=== PATIENT | female | born 1940 | race Native Hawaiian/Other Pacific Islander ===

== ENCOUNTER 2018-08-08 10:15 | Outpatient (CLI) | payer MEDICARE | END 2018-08-08 10:16 | disposition home or self-care (01) | LOC: C.MAMMO 10:15 | DX: Z12.31 Encounter for screening mammogram for malignant neoplasm of breast (principal) ==

== ENCOUNTER 2018-12-01 15:13 | Observation (INO) | payer MEDICARE ==
--- NOTE | 2018-12-01 15:30 | C.PDOC ---
History Of Present Illness 78 yr old female w/ hx of HTN p/w tachycardia. Pt notes visiting her new PMD today: Dr. Douglas who referred her to the ED for tachycardia. She notes only going in to see Dr. Douglas for establishment of a new PMD. She denies any shortness of breath or chest pain. No leg swelling. No fever, chills or night sweats. No fall or trauma / MVA. No headache, abdominal pain, back pain. No extremity pain. No rash. No constipation or diarrhea. No dark or bloody stool. No other complaints. Donavan Mckenna Time Seen by Provider: 12/01/18 15:29 Chief Complaint (Nursing): Medical Clearance Past Medical History Vital Signs: Last Vital Signs Temp 97.8 F 12/01/18 15:20 Pulse 128 H 12/01/18 15:20 Resp 18 12/01/18 15:20 BP 164/84 H 12/01/18 15:20 Pulse Ox 100 12/01/18 15:20 Primary Care Provider: Donavan Douglas C - Medical History PMH: HTN Family History: States: Unknown Family Hx - Social History Hx Alcohol Use: No Hx Substance Use: No Review Of Systems Constitutional: Negative for: Fever, Chills, Weakness, Malaise Eyes: Negative for: Pain ENT: Negative for: Ear Pain, Ear Discharge, Nose Congestion, Mouth Pain Cardiovascular: Negative for: Chest Pain, Paroxysmal Noc. Dyspnea, Edema Respiratory: Negative for: Cough, Shortness of Breath Gastrointestinal: Negative for: Nausea, Vomiting, Abdominal Pain, Constipation, Melena Genitourinary: Negative for: Dysuria, Frequency, Hematuria Musculoskeletal: Negative for: Neck Pain, Shoulder Pain, Back Pain, Hand Pain Skin: Negative for: Rash, Lesions Neurological: Negative for: Weakness, Numbness Psych: Negative for: Anxiety, Psychosis Physical Exam - Physical Exam Appears: Well, Non-toxic, No Acute Distress Skin: Normal Color, Warm, Dry Head: Atraumatic, Normacephalic Eye(s): bilateral: Normal Inspection, PERRL, EOMI Ear(s): Bilateral: Normal Nose: Normal Oral Mucosa: Moist Tongue: Normal Appearing Lips: Normal Appearing Teeth: Normal Dentition Throat: Normal, No Erythema, No Exudate Neck: Normal, No Midline Cervical Tenderness, No Paracervical Tenderness, Supple, Other (no meningeal signs) Lymphatic: Normal Exam, No Adenopathy Cardiovascular: No Friction Rub, No Murmur, No JVD, Other (tachycardic) Respiratory: Normal Breath Sounds, No Decreased Breath Sounds, No Accessory Muscle Use, No Rales, No Rhonchi Gastrointestinal/Abdominal: Normal Exam, Soft, No Tenderness, No Mass, No Distention, No Guarding Back: Normal Inspection, No CVA Tenderness, No Vertebral Tenderness Extremity: Normal ROM Extremity: Bilateral: Atraumatic Neurological/Psych: Oriented x3, Normal Speech, Normal Cognition, Normal Cranial Nerves, No Cerebellar Signs, Normal Motor Gait: Steady Extremity: Right: No Drift, Left: No Drift ED Course And Treatment - Laboratory Results Result Diagrams: 12/01/18 16:41 12/01/18 16:41 O2 Sat by Pulse Oximetry: 100 Medical Decision Making Medical Decision Makin yr old female w/ hx of HTN p/w tachycardia. She denies any complaints at this time. Well appearing w/ normal neuro exam. Sent in by Dr. Douglas for evaluation. Pending imaging / labs EK, sinus tachy, no stemi 1812 UA, CXR unremarkable mildly elevated WBC remains tachy at 112, pt however only notes mild nausea w/ out abdominal pain no other complaints. abd remains non-ttp and pt without meningeal signs appreciate consult w/ Dr. Bethea: Cards: ?infectious etiology appreciate consult w/ Dr. Douglas: to obs to his service pt in NAD, agreeable to plan Disposition - Disposition Disposition: HOSPITALIZED Disposition Time: 18:14 Condition: STABLE - Clinical Impression Clinical Impression: Tachycardia, Leukocytosis
[2018-12-01] MEDS ORDERED: Sodium Chloride 0.9% 1,000 ML IV ONE (16:04)
[2018-12-01 16:50] LABS: BASO # 0.1 K/uL (0.0-0.2); BASO % 0.4 % (0.0-2.0); EOS # 0.1 K/uL (0.0-0.7); EOS % 0.6 % (0.0-4.0); LYMPH # 1.2 K/uL (1.0-4.3); LYMPH % 9.1 % (20.0-40.0); MEAN CELL VOLUME 89.7 fL (81.0-99.0); MEAN CORPUSCULAR HEMOGLOBIN 30.5 pg (27.0-31.0); MEAN PLATELET VOLUME 6.8 fL (7.2-11.7); MONO # 0.6 K/uL (0.0-0.8); MONO % 4.4 % (0.0-10.0); NEUT # 11.2 K/uL (1.8-7.0); NEUT % 85.5 % (50.0-75.0); PLATELET COUNT 298 K/uL (130-400); RBC 4.57 Mil/uL (3.80-5.20); RED CELL DISTRIBUTION WIDTH 13.2 % (11.5-14.5); WHITE BLOOD COUNT 13.1 K/uL (4.8-10.8)
[2018-12-01 16:59] LABS: BLOOD UREA NITROGEN 11 mg/dL (7-17); CALCIUM 9.7 mg/dl (8.6-10.4); GFR NON-AFRICAN AMERICAN > 60
[2018-12-01 17:06] LABS: ALB/GLOB RATIO 1.1 (1.0-2.1); ALT/SGPT 14 U/L (9-52); AST/SGOT 46 U/L (14-36)
--- NOTE | 2018-12-01 17:26 | RAD ---
Date of service: 12/01/2018 HISTORY: Tachycardia COMPARISON: No prior. TECHNIQUE: Chest PA and lateral FINDINGS: LINES AND TUBES: None. LUNG AND PLEURA: The lungs are well inflated and clear. No pleural effusion or pneumothorax. HEART AND MEDIASTINUM: The heart is not enlarged. No aortic atherosclerotic calcifications present. The hilar and mediastinal contours are within normal limits. SKELETAL STRUCTURES: The bony structures are within normal limits for the patient's age. VISUALIZED UPPER ABDOMEN: Normal. OTHER FINDINGS: None. IMPRESSION: No active pulmonary disease.
[2018-12-01 17:48] LABS: SQUAMOUS EPITHIAL < 1 /hpf (0-5); URINE BACTERIA RARE (<OCC); URINE BILIRUBIN NEGATIVE (NEGATIVE); URINE BLOOD 1+ (NEGATIVE); URINE CLARITY Clear (Clear); URINE COLOR Straw (YELLOW); URINE GLUCOSE (UA) NORMAL (Normal); URINE LEUKOCYTE ESTERASE NEG Leu/uL (Negative); URINE PROTEIN NEGATIVE (NEGATIVE); URINE UROBILINOGEN NORMAL mg/dL (0.2-1.0)
[2018-12-01 19:13] LABS: VENOUS BLOOD GAS BASE EXCESS -2.2 mmol/L (0.0-2.0); VENOUS BLOOD GAS PCO2 41 mmHg (40-60); VENOUS BLOOD GAS PO2 28 mm/Hg (30-55); VENOUS BLOOD PH 7.36 (7.32-7.43)
[2018-12-01] MEDS ORDERED: Pneumococcal 23-Valent Vaccine IM ONE (20:31)
[2018-12-01 20:33] LABS: EOSINOPHIL 1 % (0-4); LYMPHOCYTE 8 % (20-40); MONOCYTE 3 % (0-10); NEUTROPHIL 88 % (50-75); PLATELET ESTIMATE NORMAL (NORMAL); TOTAL CELLS COUNTED 100
[2018-12-01] MEDS: Azithromycin 500 MG in Sodium Chloride 0.9% 250 ML IVPB SCH (21:59)
[2018-12-02 07:19] LABS: HEMOGLOBIN 12.6 g/dL (11.0-16.0); MEAN CELL VOLUME 90.9 fL (81.0-99.0); MEAN CORPUSCULAR HEMOGLOBIN 30.9 pg (27.0-31.0); MEAN PLATELET VOLUME 6.8 fL (7.2-11.7); RBC 4.09 Mil/uL (3.80-5.20)
[2018-12-02 07:42] LABS: ALB/GLOB RATIO 1.4 (1.0-2.1); ALBUMIN 4.4 g/dL (3.5-5.0); ALT/SGPT 12 U/L (9-52); AST/SGOT 29 U/L (14-36); BLOOD UREA NITROGEN 9 mg/dL (7-17); GFR NON-AFRICAN AMERICAN > 60
[2018-12-02 07:53] LABS: B-TYPE NATRIURETIC PEPTIDE 132 pg/mL (0-900)
[2018-12-02 08:39] VITALS: RESP 20
[2018-12-02] MEDS: Azithromycin 500 MG in Sodium Chloride 0.9% 250 ML IVPB SCH (09:39)
[2018-12-02] MEDS ORDERED: Enoxaparin 40 mg Syringe SC SCH (10:00)
[2018-12-02] MEDS ORDERED: Pantoprazole 40 mg EC Tab PO SCH (10:00)
--- NOTE | 2018-12-02 14:36 | CARD ---
APPROVED REPORT Date of service: 12/01/2018 EKG Measurement Heart [id number] <Conclusion> Sinus tachycardia Inferior infarct, age undetermined Abnormal ECG
--- NOTE | 2018-12-02 15:15 | CP.PCM.HP ---
History of Present Illness - History of Present Illness History of Present Illness: cc: sinus tachycardia Pt is a 78 year old [place] female, who presents to the office today for the first time. Pt has a PMHx of hypertension and is taking losartan and amlodipine for her hypertension. While being prepped to be seen pt was noted to have tachycardia. On auscultation and the subsequent EKG revealed sinus tachycardia with ST depressions on V4, V5, and V6. Advised pt that she needs to be stabilized and heart rate slowed down. Pt agreed to go to the ER after discussing the situation. When pt's b/w came back she was found to have an elevated WBC with no other accompanying symptoms. Pt wsa pancultured, and admitted for telemetry obeservation status [id number] osmin fgure what is going on with her body. Present on Admission - Present on Admission Any Indicators Present on Admission: No History of DVT/PE: No History of Uncontrolled Diabetes: No Urinary Catheter: No Decubitus Ulcer Present: No History Surgical Site Infection Following: None Review of Systems - Review of Systems Systems not reviewed;Unavailable: Unstable Vital Signs All systems: reviewed and no additional remarkable complaints except (intermittently elevated heart rate with average of 122 bpm. SBP and DBP both erratic from low 100s to 170sd) Review of Systems: pt essentially asymptomatic with only the incidental finding of sinus t achycardia with ST depression on V4, V5, and V6. Past Patient History - Tetanus Immunizations Tetanus Immunization: Unknown - Past Medical History & Family History Past Medical History?: Yes Past Family History: Reviewed and not pertinent - Past Social History Smoking Status: Never Smoked Chewing Tobacco Use: No Cigar Use: No Occupation: retired Alcohol: None Drugs: Denies Home Situation {Lives}: With Family - CARDIAC Hx Hypertension: Yes - PSYCHIATRIC Hx Substance Use: No - SURGICAL HISTORY Hx Section: Yes Hx Dilation and Curettage: Yes Hx Hysterectomy: Yes - ANESTHESIA Hx Anesthesia: Yes Hx Anesthesia Reactions: No Meds Allergies/Adverse Reactions: Allergies Allergy/AdvReac Type Severity Reaction Status Date / Time No Known Allergies Allergy Unverified 01/18/13 09:20 Physical Exam - Constitutional Appears: Well - Head Exam Head Exam: ATRAUMATIC, NORMAL INSPECTION, NORMOCEPHALIC - Eye Exam Eye Exam: EOMI, Normal appearance, PERRL Pupil Exam: NORMAL ACCOMODATION, PERRL - ENT Exam ENT Exam: Mucous Membranes Moist, Normal Exam - Neck Exam Neck exam: Positive for: Normal Inspection - Respiratory Exam Respiratory Exam: Clear to Auscultation Bilateral, NORMAL BREATHING PATTERN - Cardiovascular Exam Cardiovascular Exam: Tachycardia, REGULAR RHYTHM, +S1, +S2 - GI/Abdominal Exam GI & Abdominal Exam: Normal Bowel Sounds, Soft. absent: Tenderness - Rectal Exam Rectal Exam: Deferred - Extremities Exam Extremities exam: Positive for: normal inspection - Back Exam Back exam: NORMAL INSPECTION - Neurological Exam Neurological exam: Alert, CN II-XII Intact, Normal Gait, Oriented x3, Reflexes Normal - Psychiatric Exam Psychiatric exam: Anxious, Normal Affect, Normal Mood - Skin Skin Exam: Dry, Intact, Normal Color, Warm Results - Vital Signs Recent Vital Signs: Last Vital Signs Temp 97.9 F 12/02/18 07:00 Pulse 103 H 12/02/18 11:20 Resp 20 12/02/18 07:00 BP 123/68 12/02/18 07:00 Pulse Ox 100 12/02/18 11:20 - Labs Result Diagrams: 12/02/18 07:06 12/02/18 07:06 Labs: Laboratory Results - last 24 hr 12/01/18 12/01/18 12/01/18 16:41 16:41 17:25 WBC 13.1 H RBC 4.57 Hgb 14.0 Hct 41.0 MCV 89.7 MCH 30.5 MCHC 34.0 RDW 13.2 Plt Count 298 MPV 6.8 L Neut % (Auto) 85.5 H Lymph % (Auto) 9.1 L [place] % (Auto) 4.4 Eos % (Auto) 0.6 Baso % (Auto) 0.4 Neut # (Auto) 11.2 H Lymph # (Auto) 1.2 [place] # (Auto) 0.6 Eos # (Auto) 0.1 Baso # (Auto) 0.1 Neutrophils % (Manual) 88 H Lymphocytes % (Manual) 8 L Monocytes % (Manual) 3 Eosinophils % (Manual) 1 Platelet Estimate Normal pO2 VBG pH VBG pCO2 VBG HCO3 VBG Total CO2 VBG O2 Sat (Calc) VBG Base Excess VBG Potassium Glucose Lactate Sodium 133 Potassium 4.8 Chloride 96 L Carbon Dioxide 24 Anion Gap 18 BUN 11 Creatinine 0.7 Est GFR ( Amer) > 60 Est GFR (Non-Af Amer) > 60 Random Glucose 108 H Calcium 9.7 Phosphorus Magnesium 1.7 Total Bilirubin 0.7 AST 46 H ALT 14 Alkaline Phosphatase 86 Troponin I < 0.0120 NT-Pro-B Natriuret Pep Total Protein 9.6 H Albumin 5.0 Globulin 4.6 H Albumin/Globulin Ratio 1.1 Free T4 TSH 3rd Generation 2.21 Venous Blood Potassium Urine Color Straw Urine Clarity Clear Urine pH 7.0 Ur Specific [place] 1.003 Urine Protein Negative Urine Glucose (UA) Normal Urine Ketones Negative Urine Blood 1+ H Urine Nitrate Negative Urine Bilirubin Negative Urine Urobilinogen Normal Ur Leukocyte Esterase Neg Urine WBC (Auto) < 1 Urine RBC (Auto) 2 Ur Squamous Epith Cells < 1 Urine Bacteria Rare Urine Osmolality 12/01/18 12/02/18 12/02/18 19:11 07:06 07:06 WBC 8.0 RBC 4.09 Hgb 12.6 Hct 37.1 MCV 90.9 MCH 30.9 MCHC 34.0 RDW 13.0 Plt Count 271 MPV 6.8 L Neut % (Auto) Lymph % (Auto) [place] % (Auto) Eos % (Auto) Baso % (Auto) Neut # (Auto) Lymph # (Auto) [place] # (Auto) Eos # (Auto) Baso # (Auto) Neutrophils % (Manual) Lymphocytes % (Manual) Monocytes % (Manual) Eosinophils % (Manual) Platelet Estimate pO2 28 L VBG pH 7.36 VBG pCO2 41 VBG HCO3 21.9 VBG Total CO2 24.5 VBG O2 Sat (Calc) 46.5 VBG Base Excess -2.2 L VBG Potassium 3.1 L Glucose 107 H Lactate 1.6 Sodium 140.0 137 Potassium 4.0 Chloride 107.0 100 Carbon Dioxide 24 Anion Gap 17 BUN 9 Creatinine 0.8 Est GFR ( Amer) > 60 Est GFR (Non-Af Amer) > 60 Random Glucose 107 H Calcium 9.0 Phosphorus 3.3 Magnesium 1.7 Total Bilirubin 0.6 AST 29 ALT 12 Alkaline Phosphatase 55 Troponin I NT-Pro-B Natriuret Pep 132 Total Protein 7.5 Albumin 4.4 Globulin 3.1 Albumin/Globulin Ratio 1.4 Free T4 TSH 3rd Generation Venous Blood Potassium 3.1 L Urine Color Urine Clarity Urine pH Ur Specific [place] Urine Protein Urine Glucose (UA) Urine Ketones Urine Blood Urine Nitrate Urine Bilirubin Urine Urobilinogen Ur Leukocyte Esterase Urine WBC (Auto) Urine RBC (Auto) Ur Squamous Epith Cells Urine Bacteria Urine Osmolality 12/02/18 12/02/18 07:06 07:07 WBC RBC Hgb Hct MCV MCH MCHC RDW Plt Count MPV Neut % (Auto) Lymph % (Auto) [place] % (Auto) Eos % (Auto) Baso % (Auto) Neut # (Auto) Lymph # (Auto) [place] # (Auto) Eos # (Auto) Baso # (Auto) Neutrophils % (Manual) Lymphocytes % (Manual) Monocytes % (Manual) Eosinophils % (Manual) Platelet Estimate pO2 VBG pH VBG pCO2 VBG HCO3 VBG Total CO2 VBG O2 Sat (Calc) VBG Base Excess VBG Potassium Glucose Lactate Sodium Potassium Chloride Carbon Dioxide Anion Gap BUN Creatinine Est GFR ( Amer) Est GFR (Non-Af Amer) Random Glucose Calcium Phosphorus Magnesium Total Bilirubin AST ALT Alkaline Phosphatase Troponin I NT-Pro-B Natriuret Pep Total Protein Albumin Globulin Albumin/Globulin Ratio Free T4 1.00 TSH 3rd Generation 3.84 Venous Blood Potassium Urine Color Urine Clarity Urine pH Ur Specific [place] Urine Protein Urine Glucose (UA) Urine Ketones Urine Blood Urine Nitrate Urine Bilirubin Urine Urobilinogen Ur Leukocyte Esterase Urine WBC (Auto) Urine RBC (Auto) Ur Squamous Epith Cells Urine Bacteria Urine Osmolality 299 L - EKG Data EKG Interpreted by: Myself Rate: Tachycardia - EKG Data When Compared to Previous EKG: Significant Changes Interpretation: Acute Ischemia Assessment & Plan (1) Tachycardia Assessment and Plan: incidental finding on initial office visit. Discussed with pt implications of this finding, especiall when coupled with ST depression on EKG when pt's HR > 120s. Endorsement to ER MD included recommendation to contact pt's transport operations inspector and former PMD Dr. Bethea who, per ER doctor, was "not impressed with pt's EKG finding and that it may be related to the incidental finding of pt's leukocytosis." Recommended telemetry observation admission. Status: Acute Priority: High (2) Leukocytosis Assessment and Plan: start pt on IV abx and observe if subsequent blood draw approx 12 hours later will result in improvement of parameters, particularly her WBC count and differentiation of neutrophil species. Status: Acute Priority: High (3) Hypertension Assessment and Plan: at baseline, and volatility probably from newly discovered leukocytosis Status: Acute Priority: Medium Decision To Admit - Pt Status Changed To: Hospital Disposition Of: Observation - . Bed Request Type: Telemetry Admitting Physician: Donavan Douglas
[2018-12-02 15:39] VITALS: PULSE 98
[2018-12-02 16:40] VITALS: BP 152/81; TEMP 98.1; O2SAT 97
--- NOTE | 2018-12-02 19:11 | CP.PCM.DIS ---
Provider - Provider Date of Admission: 12/01/18 18:11 Attending physician: Donavan Douglas MD Primary care physician: Donavan Douglas MD Time Spent in preparation of Discharge (in minutes): 30 Diagnosis - Discharge Diagnosis (1) Tachycardia Status: Acute Priority: High (2) Leukocytosis Status: Acute Priority: High (3) Hypertension Status: Acute Priority: Medium Hospital Course - Lab Results Lab Results: Most Recent Lab Values WBC 8.0 K/uL (4.8-10.8) 12/02/18 07:06 RBC 4.09 Mil/uL (3.80-5.20) 12/02/18 07:06 Hgb 12.6 g/dL (11.0-16.0) 12/02/18 07:06 Hct 37.1 % (34.0-47.0) 12/02/18 07:06 MCV 90.9 fL (81.0-99.0) 12/02/18 07:06 MCH 30.9 pg (27.0-31.0) 12/02/18 07:06 MCHC 34.0 g/dL (33.0-37.0) 12/02/18 07:06 RDW 13.0 % (11.5-14.5) 12/02/18 07:06 Plt Count 271 K/uL (130-400) 12/02/18 07:06 MPV 6.8 fL (7.2-11.7) L 12/02/18 07:06 Neut % (Auto) 85.5 % (50.0-75.0) H 12/01/18 16:41 Lymph % (Auto) 9.1 % (20.0-40.0) L 12/01/18 16:41 [place] % (Auto) 4.4 % (0.0-10.0) 12/01/18 16:41 Eos % (Auto) 0.6 % (0.0-4.0) 12/01/18 16:41 Baso % (Auto) 0.4 % (0.0-2.0) 12/01/18 16:41 Neut # (Auto) 11.2 K/uL (1.8-7.0) H 12/01/18 16:41 Lymph # (Auto) 1.2 K/uL (1.0-4.3) 12/01/18 16:41 [place] # (Auto) 0.6 K/uL (0.0-0.8) 12/01/18 16:41 Eos # (Auto) 0.1 K/uL (0.0-0.7) 12/01/18 16:41 Baso # (Auto) 0.1 K/uL (0.0-0.2) 12/01/18 16:41 Neutrophils % (Manual) 88 % (50-75) H 12/01/18 16:41 Lymphocytes % (Manual) 8 % (20-40) L 12/01/18 16:41 Monocytes % (Manual) 3 % (0-10) 12/01/18 16:41 Eosinophils % (Manual) 1 % (0-4) 12/01/18 16:41 Platelet Estimate Normal (NORMAL) 12/01/18 16:41 pO2 28 mm/Hg (30-55) L 12/01/18 19:11 VBG pH 7.36 (7.32-7.43) 12/01/18 19:11 VBG pCO2 41 mmHg (40-60) 12/01/18 19:11 VBG HCO3 21.9 mmol/L 12/01/18 19:11 VBG Total CO2 24.5 mmol/L (22-28) 12/01/18 19:11 VBG O2 Sat (Calc) 46.5 % (40-65) 12/01/18 19:11 VBG Base Excess -2.2 mmol/L (0.0-2.0) L 12/01/18 19:11 VBG Potassium 3.1 mmol/L (3.6-5.2) L 12/01/18 19:11 Sodium 140.0 mmol/l (132-148) 12/01/18 19:11 Chloride 107.0 mmol/L (98-107) 12/01/18 19:11 Glucose 107 mg/dl (65-105) H 12/01/18 19:11 Lactate 1.6 mmol/L (0.7-2.1) 12/01/18 19:11 Sodium 137 mmol/L (132-148) 12/02/18 07:06 Potassium 4.0 mmol/L (3.6-5.2) 12/02/18 07:06 Chloride 100 mmol/L (98-107) 12/02/18 07:06 Carbon Dioxide 24 mmol/L (22-30) 12/02/18 07:06 Anion Gap 17 (10-20) 12/02/18 07:06 BUN 9 mg/dL (7-17) 12/02/18 07:06 Creatinine 0.8 mg/dL (0.7-1.2) 12/02/18 07:06 Est GFR ( Amer) > 60 12/02/18 07:06 Est GFR (Non-Af Amer) > 60 12/02/18 07:06 Random Glucose 107 mg/dL (65-105) H 12/02/18 07:06 Calcium 9.0 mg/dl (8.6-10.4) 12/02/18 07:06 Phosphorus 3.3 mg/dL (2.5-4.5) 12/02/18 07:06 Magnesium 1.7 mg/dL (1.6-2.3) 12/02/18 07:06 Total Bilirubin 0.6 mg/dL (0.2-1.3) 12/02/18 07:06 AST 29 U/L (14-36) 12/02/18 07:06 ALT 12 U/L (9-52) 12/02/18 07:06 Alkaline Phosphatase 55 U/L (38-126) 12/02/18 07:06 Troponin I < 0.0120 ng/mL (0.00-0.120) 12/01/18 16:41 NT-Pro-B Natriuret Pep 132 pg/mL (0-900) 12/02/18 07:06 Total Protein 7.5 g/dL (6.3-8.3) 12/02/18 07:06 Albumin 4.4 g/dL (3.5-5.0) 12/02/18 07:06 Globulin 3.1 gm/dL (2.2-3.9) 12/02/18 07:06 Albumin/Globulin Ratio 1.4 (1.0-2.1) 12/02/18 07:06 Free T4 1.00 ng/dL (0.78-2.19) 12/02/18 07:06 TSH 3rd Generation 3.84 mIU/L (0.46-4.68) 12/02/18 07:06 Venous Blood Potassium 3.1 mmol/L (3.6-5.2) L 12/01/18 19:11 Urine Color Straw (YELLOW) 12/01/18 17:25 Urine Clarity Clear (Clear) 12/01/18 17:25 Urine pH 7.0 (5.0-8.0) 12/01/18 17:25 Ur Specific [place] 1.003 (1.003-1.030) 12/01/18 17:25 Urine Protein Negative mg/dL (NEGATIVE) 12/01/18 17:25 Urine Glucose (UA) Normal mg/dL (Normal) 12/01/18 17:25 Urine Ketones Negative mg/dL (NEGATIVE) 12/01/18 17:25 Urine Blood 1+ (NEGATIVE) H 12/01/18 17:25 Urine Nitrate Negative (NEGATIVE) 12/01/18 17:25 Urine Bilirubin Negative (NEGATIVE) 12/01/18 17:25 Urine Urobilinogen Normal mg/dL (0.2-1.0) 12/01/18 17:25 Ur Leukocyte Esterase Neg David/uL (Negative) 12/01/18 17:25 Urine WBC (Auto) < 1 /hpf (0-5) 12/01/18 17:25 Urine RBC (Auto) 2 /hpf (0-3) 12/01/18 17:25 Ur Squamous Epith Cells < 1 /hpf (0-5) 12/01/18 17:25 Urine Bacteria Rare (<OCC) 12/01/18 17:25 Urine Osmolality 299 mosm/kg (300-1000) L 12/02/18 07:07 - Hospital Course Hospital Course: Patient was admitted for observation in telemetry after confirmation of sinus tachycardia at the emergency room. Leukocytosis was addressed by giving one dose of Ceftriaxone to which azithromycin was added by me later that same night. Repeat laboratory tests were taken particularly of rhe CBC in the morning and this showed normalization of the former elevated WBC numbers. Pt was again assessed on this day and deemed stable enough to discharge home with close follow up at the office on Wednesday, December 07, 2018 at 130 pm. Discharge Exam - Head Exam Head Exam: ATRAUMATIC, NORMAL INSPECTION, NORMOCEPHALIC - Eye Exam Eye Exam: EOMI, Normal appearance, PERRL Pupil Exam: NORMAL ACCOMODATION, PERRL - GI/Abdominal Exam GI & Abdominal Exam: Normal Bowel Sounds - Rectal Exam Rectal Exam: Deferred - Neurological Exam Neurological exam: Alert, CN II-XII Intact, Normal Gait, Oriented x3, Reflexes Normal - Psychiatric Exam Psychiatric exam: Normal Affect, Normal Mood - Skin Skin Exam: Dry, Intact, Normal Color, Warm Discharge Plan - Discharge Medications Prescriptions: Azithromycin 500 mg PO DAILY 8 Days #8 tablet - Follow Up Plan Condition: STABLE Disposition: HOME/ ROUTINE Patient education suggested?: Yes Instructions: Heart Healthy Diet, Sinus Tachycardia (DC), Tachycardia (DC), Cardioversion (DC), Leukocytosis (DC), Leukocytosis (GEN), Hypertension (DC), Hypertension (GEN) Additional Instructions: > Your appt is on Friday, December 07, 2018 at 130 pm. Get blood work done in my office December 06 prior to appointment. This is not fasting blood work. Referrals: Donavan Douglas MD [Staff Provider] - Clinical Quality Measures - CQM - Stroke Antithrombotic Prescribed: Patient Refused Anticoagulation Prescribed for Atrial Flutter, Atrial Fibrillation and History of:: Not Applicable Statin prescribed: Patient Refused Contraindication/Reason for not providing: Other (afraid of possible complications including liver damage) If Other selected, reason for not providing: fear of liver failure despite explanation of strict monitoring - CQM - VTE Did patient receive overlap therapy during hosptialization?: Yes If no, please select a reason why?: Patient/Family Refused Is patient being discharged on overlap therapy?: No If no, please select a reason why:: Patient/Family Refused - CQM - Heart Failure Ejection Fraction: 40 % or Greater Beta-Luci Prescribed: None Contraindication/Reason for not providing: discontinued in the past despite SVT hx by cardio Angiotensin II Receptor Luci Prescribed: Yes AnticoagulationTherapy for Atrial Fibrillation/Atrialflutter: No Contraindication/Reason for not providing: no afib Aldosterone Antagonist Prescribed: No Contraindication/Reason for not providing: no CHF Hydralazine Nitrate Prescribed: No Contraindication/Reason for not providing: no CKD HTN Implantable Cardioverter Defibrillator Therapy: No Contraindication/Reason for not providing: no indic Cardiac Resynchronization Therapy Prescribed: No Contraindication/Reason for not providing: no indic Will be discharged to: Home Follow Up Date (must be within 7 days from discharge): 12/07/18 Follow Up Time: 13:30 - Date & Time of Discharge Summary Date of Discharge Summary: 12/02/18 Time of Discharge Summary: 20:47
[2018-12-03] MEDS ORDERED: Pneumococcal 23-Valent Vaccine IM ONE (10:00)
== END 2018-12-02 20:06 | disposition home or self-care (01) ==
LOC: C.ER 15:13 → C.3T 18:11 → C.9E 19:14 → C.6T 19:40
PROVIDERS: ADMIT Family Medicine; ATTEND Family Medicine
DX: R00.0 Tachycardia, unspecified (principal); D72.829 Elevated white blood cell count, unspecified; I10 Essential (primary) hypertension; Z90.710 Acquired absence of both cervix and uterus
CPT/HCPCS: 36415; 71046; 80053; 81001; 82803; 83735; 83880; 83935; 84100; 84439; 84443; 84484; 85025; 85027; 87040; 93005; 96374; 99285; G0378; J0456; J0696; J1650; J2405; J7030; J7050

== ENCOUNTER 2018-12-19 04:48 | Observation (INO) | payer MEDICARE ==
--- NOTE | 2018-12-19 05:10 | C.PDOC ---
History Of Present Illness Patient presents to the ED c/o generalized weakness, malaise and chest pain since . Patient was recently admitted for chest pain and tachycardia. Patient denies fever, chills, headache, SOB, nausea, vomit, dizziness. Time Seen by Provider: 12/19/18 05:09 Chief Complaint (Nursing): Chest Pain History Per: Patient History/Exam Limitations: no limitations Onset/Duration Of Symptoms: Days Current Symptoms Are (Timing): Still Present Context: Other Severity: Moderate Pain Scale Rating Of: 4 Quality: Dull, Aching Associated Symptoms: denies: Nausea Modifying Factors: None Exacerbating Factors: None Alleviating Factors: None Recent travel outside of the [place]: No Additional History Per: Family Past Medical History Reviewed: Historical Data, Nursing Documentation, Vital Signs Vital Signs: Last Vital Signs Temp 98.2 F 12/19/18 04:58 Pulse 103 H 12/19/18 04:58 Resp 16 12/19/18 04:58 BP 157/67 H 12/19/18 04:58 Pulse Ox 100 12/19/18 04:58 Primary Care Provider: Donavan Douglas - Medical History PMH: HTN Surgical History: No Surg Hx Family History: States: Unknown Family Hx - Social History Hx Alcohol Use: No Hx Substance Use: No Review Of Systems Constitutional: Positive for: Weakness, Malaise. Negative for: Fever, Chills ENT: Negative for: Throat Pain Cardiovascular: Positive for: Chest Pain. Negative for: Palpitations Respiratory: Negative for: Shortness of Breath Gastrointestinal: Negative for: Nausea, Vomiting, Abdominal Pain Genitourinary: Negative for: Dysuria Skin: Negative for: Rash Neurological: Negative for: Weakness, Numbness, Headache, Dizziness Psych: Negative for: Anxiety Physical Exam - Physical Exam Appears: Non-toxic, No Acute Distress Skin: Warm, Dry Head: Normacephalic Eye(s): bilateral: Normal Inspection Oral Mucosa: Moist Neck: Supple Chest: Symmetrical Cardiovascular: Rhythm Regular Respiratory: No Rales, No Rhonchi, No Wheezing Gastrointestinal/Abdominal: Soft, No Tenderness, No Distention Back: No CVA Tenderness Extremity: Normal ROM, No Tenderness, No Swelling Extremity: Bilateral: Atraumatic Pulses: Left Dorsalis Pedis: Normal, Right Dorsalis Pedis: Normal Neurological/Psych: Oriented x3, Normal Speech, Normal Cognition Gait: Steady ED Course And Treatment - Laboratory Results Result Diagrams: 12/19/18 05:34 12/19/18 05:34 ECG: Interpreted By Me, Viewed By Me ECG Rhythm: Sinus Rhythm (96), Nonspecific Changes O2 Sat by Pulse Oximetry: 100 (On RA) Pulse Ox Interpretation: Normal - Radiology CXR: Interpreted by Me, Viewed By Me CXR Interpretation: Yes: Other (unchnaged from 12/01/18). No: Infiltrates, Fracture, Pnemothorax Progress Note: Plan: - EKG. - Labs. - CXR. - Aspirin 325 mg PO Disposition Discussed With .: Donavan Douglas Comment: accepted the pt on his servie and took over the care at6:40 AM Doctor Will See Patient In The: Hospital Counseled Patient/Family Regarding: Studies Performed, Diagnosis - Disposition Disposition: HOSPITALIZED Disposition Time: 05:10 Condition: FAIR Forms: [facility] ([place]) - POA Present On Arrival: None - Clinical Impression Clinical Impression: Chest pain - Scribe Statement The provider has reviewed the documentation as recorded by the Scribe Zeus Ann All medical record entries made by the Scribe were at my direction and personally dictated by me. I have reviewed the chart and agree that the record accurately reflects my personal performance of the history, physical exam, medical decision making, and the department course for this patient. I have also personally directed, reviewed, and agree with the discharge instructions and disposition. Decision To Admit - Pt Status Changed To: Hospital Disposition Of: Observation - . Bed Request Type: Telemetry Admitting Physician: Donavan Douglas Patient Diagnosis: Chest pain
[2018-12-19] MEDS ORDERED: Aspirin 325 mg EC Tablets PO STA (05:14)
[2018-12-19 05:37] LABS: BASO # 0.1 K/uL (0.0-0.2); BASO % 0.6 % (0.0-2.0); EOS % 0.3 % (0.0-4.0); HEMOGLOBIN 12.9 g/dL (11.0-16.0); LYMPH # 1.9 K/uL (1.0-4.3); LYMPH % 18.3 % (20.0-40.0); MEAN CELL VOLUME 89.3 fL (81.0-99.0); MEAN CORPUSCULAR HEMOGLOBIN 31.1 pg (27.0-31.0); MEAN CORPUSCULAR HGB CONC 34.9 g/dL (33.0-37.0); MEAN PLATELET VOLUME 6.6 fL (7.2-11.7); MONO # 0.6 K/uL (0.0-0.8); NEUT # 7.8 K/uL (1.8-7.0); NEUT % 74.8 % (50.0-75.0); RBC 4.14 Mil/uL (3.80-5.20); RED CELL DISTRIBUTION WIDTH 12.6 % (11.5-14.5); WHITE BLOOD COUNT 10.4 K/uL (4.8-10.8)
[2018-12-19 05:44] LABS: PARTIAL THROMBOPLASTIN TIME 31.5 SECONDS (21-34); PROTHROMBIN TIME 11.4 SECONDS (9.7-12.2)
[2018-12-19 06:00] LABS: B-TYPE NATRIURETIC PEPTIDE 52.6 pg/mL (0-900)
[2018-12-19 06:04] LABS: ALB/GLOB RATIO 1.6 (1.0-2.1); ALBUMIN 4.5 g/dL (3.5-5.0); ALT/SGPT 14 U/L (9-52); AST/SGOT 29 U/L (14-36); BLOOD UREA NITROGEN 12 mg/dL (7-17); CALCIUM 8.8 mg/dl (8.6-10.4); GFR NON-AFRICAN AMERICAN > 60; LIPASE 116 U/L (23-300)
[2018-12-19] MEDS ORDERED: Pantoprazole 40 mg EC Tab PO ONE (06:57)
[2018-12-19] MEDS: Pantoprazole 40 mg EC Tab PO SCH ×2 (06:58→21:51)
[2018-12-19] MEDS: Enoxaparin 40 mg Syringe SC SCH (10:04)
--- NOTE | 2018-12-19 17:15 | RAD ---
Date of service: 12/19/2018 PROCEDURE: CHEST RADIOGRAPH, 1 VIEW HISTORY: chest pain COMPARISON: None available. FINDINGS: LUNGS: Clear. PLEURA: No pneumothorax or pleural fluid seen. CARDIOVASCULAR: No aortic atherosclerotic calcification present. Normal. OSSEOUS STRUCTURES: No significant abnormalities. VISUALIZED UPPER ABDOMEN: Normal. OTHER FINDINGS: None. IMPRESSION: No active disease.
[2018-12-19] MEDS ORDERED: Home Med 1 UNIT (Omeprazole [Omeprazole] 20 MG) PO SCH (22:00)
[2018-12-20 01:12] VITALS: RESP 20
--- NOTE | 2018-12-20 06:24 | CP.PCM.HP ---
History of Present Illness - History of Present Illness History of Present Illness: cc: chest pain and weakness, poss anxiety HPI: Pt is a 78 year old female who recently started seeing me approx 2 weeks ago. On her first visit, she was noted to have a heart rate of 115 to 130, which she admits she also got the same readings when she took her BP to monitor her HTN. This only happened intermittently but appeared to be getting more frequent. Had advised admission for pt at the time, and subsequently was able to lower her HR by treating an occult infection to which we never found a cause. Pt was dischaged home on a beta elli aside from her usual medications. 4 days after, while obtaining her repeat bloodwork, pt curbsided me and said that she was feeling weak and not herself. I advised her to cut her pill in 1/2, from 25 mg to 12.5 mg, but continue the rest of her medicines. She called again 2 days later still feeling unchanged, and repeated to me her bp ranging from 115s to 130, systolic, heart rate in the 70s to 80s. Pt did not call all weekend until I got the call from the ER that Mrs. Ahn was back in the hospital and needed to be admitted. Knowing there were adjustments in her meds to be done, I accepted her into my service. Present on Admission - Present on Admission Any Indicators Present on Admission: No History of DVT/PE: No History of Uncontrolled Diabetes: No Urinary Catheter: No Decubitus Ulcer Present: No Review of Systems - Review of Systems Review of Systems: chest pain, weakness, lightheadedness on fast movement Past Patient History - Tetanus Immunizations Tetanus Immunization: Unknown - Past Medical History & Family History Past Medical History?: Yes Past Family History: Reviewed and not pertinent - Past Social History Smoking Status: Never Smoked Chewing Tobacco Use: No Cigar Use: No Alcohol: None Drugs: Denies Home Situation {Lives}: Alone Domestic Violence: Negative - CARDIAC Hx Cardia Arrhythmia: Yes (supraventricular tachycardia) Hx Hypertension: Yes - PULMONARY Hx Respiratory Disorders: No - NEUROLOGICAL Hx Neurological Disorder: No - HEENT Hx HEENT Problems: No - RENAL Hx Chronic Kidney Disease: No - ENDOCRINE/METABOLIC Hx Endocrine Disorders: No - HEMATOLOGICAL/ONCOLOGICAL Hx Blood Disorders: No - INTEGUMENTARY Hx Dermatological Problems: No - MUSCULOSKELETAL/RHEUMATOLOGICAL Hx Musculoskeletal Disorders: No Hx Falls: No - GASTROINTESTINAL Hx Gastrointestinal Disorders: Yes Hx Crohn's Disease: Yes Hx Vomiting: Yes Other/Comment: frequent intermittent nausea - GENITOURINARY/GYNECOLOGICAL Hx Urinary Tract Infection: Yes - PSYCHIATRIC Hx Anxiety: Yes Hx Substance Use: No - SURGICAL HISTORY Hx Surgeries: No Hx Section: Yes Hx Dilation and Curettage: Yes Hx Hysterectomy: Yes - ANESTHESIA Hx Anesthesia: Yes Hx Anesthesia Reactions: No Meds Allergies/Adverse Reactions: Allergies Allergy/AdvReac Type Severity Reaction Status Date / Time No Known Allergies Allergy Unverified 01/18/13 09:20 Physical Exam - Constitutional Appears: Well, No Acute Distress - Head Exam Head Exam: ATRAUMATIC, NORMAL INSPECTION, NORMOCEPHALIC - Eye Exam Eye Exam: EOMI, Normal appearance, PERRL Pupil Exam: NORMAL ACCOMODATION, PERRL - ENT Exam ENT Exam: Mucous Membranes Moist, Normal Exam - Neck Exam Neck exam: Positive for: Normal Inspection - Respiratory Exam Respiratory Exam: Clear to Auscultation Bilateral, NORMAL BREATHING PATTERN - Cardiovascular Exam Cardiovascular Exam: REGULAR RHYTHM - GI/Abdominal Exam GI & Abdominal Exam: Normal Bowel Sounds, Soft. absent: Tenderness - Rectal Exam Rectal Exam: NORMAL INSPECTION - Extremities Exam Extremities exam: Positive for: normal inspection - Back Exam Back exam: NORMAL INSPECTION - Neurological Exam Neurological exam: Alert, CN II-XII Intact, Normal Gait, Oriented x3, Reflexes Normal - Psychiatric Exam Psychiatric exam: Anxious, Depressed, Normal Affect - Skin Skin Exam: Dry, Intact, Normal Color, Warm Results - Vital Signs Recent Vital Signs: Last Vital Signs Temp 97.8 F 12/19/18 23:15 Pulse 61 12/20/18 01:00 Resp 20 12/19/18 23:15 BP 123/68 12/19/18 23:15 Pulse Ox 98 12/20/18 05:00 - Labs Result Diagrams: 12/19/18 05:34 12/20/18 11:00 Labs: Laboratory Results - last 24 hr 12/19/18 12/19/18 11:50 18:53 Troponin I < 0.0120 < 0.0120 - EKG Data EKG Interpreted by: Myself EKG shows normal: Sinus rhythm Rate: Normal - EKG Data When Compared to Previous EKG: No Significant Change Assessment & Plan (1) Chest pain Assessment and Plan: ascertain if cardiac or not, though likelihood seems remote Status: Acute (2) Hyponatremia Assessment and Plan: will monitor fluid intake and check levels today Status: Acute Priority: High (3) GERD (gastroesophageal reflux disease) Assessment and Plan: will start pt on IV formulation to help with healing, diet to be bland; add famotidine to gi meds Status: Acute (4) Anxiety disorder due to general medical condition with panic attack Assessment and Plan: start paroxetine CR Status: Acute Priority: High (5) Hypertension Assessment and Plan: appears to be tolerating just 1 tablet for hypertension Status: Acute Priority: Medium Decision To Admit - Pt Status Changed To: Hospital Disposition Of: Inpatient - Admit Certification Admit to Inpatient:: After my assessment, the patient will require hospitalization for at least two midnights. This is because of the severity of symptoms shown, intensity of services needed, and/or the medical risk in this patient being treated as an outpatient. - InPatient: Physician Admission Certification:: Pt, aside from complaint of chest pain, also shows hyponatremia manifesting as generalized weakness. Pt has chronic anxiety disorder previously undiagnosed and allergic to some sSRIs. - . Bed Request Type: Telemetry Admitting Physician: Donavan Douglas
[2018-12-20] MEDS: Enoxaparin 40 mg Syringe SC SCH ×2 (09:48→09:52)
[2018-12-20 11:29] LABS: ALB/GLOB RATIO 1.7 (1.0-2.1); ALBUMIN 4.5 g/dL (3.5-5.0); ALT/SGPT 10 U/L (9-52); AST/SGOT 25 U/L (14-36); BLOOD UREA NITROGEN 13 mg/dL (7-17); GFR NON-AFRICAN AMERICAN > 60
--- NOTE | 2018-12-20 20:45 | CARD ---
APPROVED REPORT Date of service: 12/19/2018 EKG Measurement Heart [id number] <Conclusion> Normal sinus rhythm Normal ECG
[2018-12-20] MEDS: Pantoprazole 40 mg EC Tab PO SCH (21:23)
[2018-12-21 07:05] LABS: BLOOD UREA NITROGEN 17 mg/dL (7-17); CALCIUM 8.9 mg/dl (8.6-10.4); GFR NON-AFRICAN AMERICAN > 60
[2018-12-21 08:08] LABS: FREE T4 1.32 ng/dL (0.78-2.19)
[2018-12-21] MEDS: Enoxaparin 40 mg Syringe SC SCH (10:00)
[2018-12-21] MEDS ORDERED: Pneumococcal 23-Valent Vaccine IM ONE (10:00)
--- NOTE | 2018-12-21 15:46 | CP.PCM.PN ---
Subjective - Date & Time of Evaluation Date of Evaluation: 12/20/18 Time of Evaluation: 16:15 Objective - Vital Signs/Intake and Output Vital Signs (last 24 hours): Temp Pulse Resp BP Pulse Ox 97.9 F 76 20 149/75 99 12/21/18 08:00 12/21/18 09:07 12/21/18 08:00 12/21/18 09:07 12/21/18 08:00 Intake and Output: 12/21/18 12/21/18 06:59 18:59 Intake Total 240 Balance 240 - Medications Medications: Current Medications Alprazolam (Xanax) 0.25 mg PO Q12 [facility] Stop: 12/28/18 22:01 Enoxaparin Sodium (Lovenox) 40 mg SC DAILY [facility] Last Admin: 12/21/18 10:00 Dose: Not Given Lactulose (Enulose) 20 gm PO Q6 PRN PRN Reason: Constipation Last Admin: 12/20/18 21:20 Dose: 20 gm Metoprolol Tartrate (Lopressor) 12.5 mg PO Q12 [facility] Last Admin: 12/21/18 09:08 Dose: 12.5 mg Pantoprazole Sodium (Protonix Ec Tab) 40 mg PO HS [facility] Last Admin: 12/20/18 21:23 Dose: 40 mg - Labs Labs: 12/19/18 05:34 12/21/18 06:44 PT 11.4 SECONDS (9.7-12.2) 12/19/18 05:34 INR 1.0 12/19/18 05:34 APTT 31.5 SECONDS (21-34) 12/19/18 05:34 Assessment and Plan (1) Chest pain Status: Resolved (2) Hyponatremia Status: Acute (3) GERD (gastroesophageal reflux disease) Status: Acute (4) Anxiety disorder due to general medical condition with panic attack Status: Acute (5) Hypertension Status: Acute
--- NOTE | 2018-12-21 15:48 | CP.PCM.DIS ---
Provider - Provider Date of Admission: 12/19/18 06:38 Attending physician: Donavan Douglas MD Consults: 12/20/18 12:32 Physician Consult Routine Comment: initial treatment for JOSE DANIEL Consulting Provider: Juan Kenyon Consulting Physician: Juan Kenyon Reason for Consult: evaluate pt's anxiety disorder and treaet Additional Comments: adverse rxn to paroxetine Time Spent in preparation of Discharge (in minutes): 60 Diagnosis - Discharge Diagnosis (1) Chest pain Status: Resolved Priority: High (2) Hyponatremia Status: Acute Priority: High (3) GERD (gastroesophageal reflux disease) Status: Acute Priority: High (4) Anxiety disorder due to general medical condition with panic attack Status: Acute Priority: High (5) Hypertension Status: Acute Priority: Medium Hospital Course - Lab Results Lab Results: Micro Results 12/20/18 10:38 Urine,Clean Catch Urine Culture - Final Strep Agalactiae Group B Most Recent Lab Values WBC 10.4 K/uL (4.8-10.8) 12/19/18 05:34 RBC 4.14 Mil/uL (3.80-5.20) 12/19/18 05:34 Hgb 12.9 g/dL (11.0-16.0) 12/19/18 05:34 Hct 36.9 % (34.0-47.0) 12/19/18 05:34 MCV 89.3 fL (81.0-99.0) 12/19/18 05:34 MCH 31.1 pg (27.0-31.0) H 12/19/18 05:34 MCHC 34.9 g/dL (33.0-37.0) 12/19/18 05:34 RDW 12.6 % (11.5-14.5) 12/19/18 05:34 Plt Count 282 K/uL (130-400) 12/19/18 05:34 MPV 6.6 fL (7.2-11.7) L 12/19/18 05:34 Neut % (Auto) 74.8 % (50.0-75.0) 12/19/18 05:34 Lymph % (Auto) 18.3 % (20.0-40.0) L 12/19/18 05:34 [place] % (Auto) 6.0 % (0.0-10.0) 12/19/18 05:34 Eos % (Auto) 0.3 % (0.0-4.0) 12/19/18 05:34 Baso % (Auto) 0.6 % (0.0-2.0) 12/19/18 05:34 Neut # (Auto) 7.8 K/uL (1.8-7.0) H 12/19/18 05:34 Lymph # (Auto) 1.9 K/uL (1.0-4.3) 12/19/18 05:34 [place] # (Auto) 0.6 K/uL (0.0-0.8) 12/19/18 05:34 Eos # (Auto) 0.0 K/uL (0.0-0.7) 12/19/18 05:34 Baso # (Auto) 0.1 K/uL (0.0-0.2) 12/19/18 05:34 PT 11.4 SECONDS (9.7-12.2) 12/19/18 05:34 INR 1.0 12/19/18 05:34 APTT 31.5 SECONDS (21-34) 12/19/18 05:34 Sodium 129 mmol/L (132-148) L 12/21/18 06:44 Potassium 3.7 mmol/L (3.6-5.2) 12/21/18 06:44 Chloride 97 mmol/L (98-107) L 12/21/18 06:44 Carbon Dioxide 25 mmol/L (22-30) 12/21/18 06:44 Anion Gap 11 (10-20) 12/21/18 06:44 BUN 17 mg/dL (7-17) 12/21/18 06:44 Creatinine 0.9 mg/dL (0.7-1.2) 12/21/18 06:44 Est GFR ( Amer) > 60 12/21/18 06:44 Est GFR (Non-Af Amer) > 60 12/21/18 06:44 Random Glucose 90 mg/dL (65-105) D 12/21/18 06:44 Hemoglobin A1c 5.7 % (4.2-6.5) 12/21/18 06:44 Serum Osmolality 289 mosm/kg (272-300) 12/20/18 11:00 Calcium 8.9 mg/dl (8.6-10.4) 12/21/18 06:44 Phosphorus 2.7 mg/dL (2.5-4.5) 12/20/18 11:00 Magnesium 1.7 mg/dL (1.6-2.3) 12/21/18 14:07 Total Bilirubin 0.5 mg/dL (0.2-1.3) 12/20/18 11:00 AST 25 U/L (14-36) 12/20/18 11:00 ALT 10 U/L (9-52) 12/20/18 11:00 Alkaline Phosphatase 54 U/L (38-126) 12/20/18 11:00 Troponin I < 0.0120 ng/mL (0.00-0.120) 12/19/18 18:53 NT-Pro-B Natriuret Pep 52.6 pg/mL (0-900) 12/19/18 05:34 Total Protein 7.2 g/dL (6.3-8.3) 12/20/18 11:00 Albumin 4.5 g/dL (3.5-5.0) 12/20/18 11:00 Globulin 2.7 gm/dL (2.2-3.9) 12/20/18 11:00 Albumin/Globulin Ratio 1.7 (1.0-2.1) 12/20/18 11:00 Lipase 116 U/L (23-300) 12/19/18 05:34 Free T4 1.32 ng/dL (0.78-2.19) 12/21/18 06:44 TSH 3rd Generation 3.22 mIU/L (0.46-4.68) 12/21/18 06:44 Ur Random Sodium 22 mmol/L 12/20/18 10:38 Urine Chloride 32 mmol/L (32-290) 12/20/18 10:38 Discharge Exam - Head Exam Head Exam: ATRAUMATIC, NORMAL INSPECTION, NORMOCEPHALIC Discharge Plan - Discharge Medications Prescriptions: Lactulose [Enulose] 20 gm PO Q6 PRN 30 Days #900 ml PRN Reason: Constipation Lactulose [Enulose] 20 gm PO HS PRN 30 Days #900 ml PRN Reason: Constipation Metoprolol Tartrate [Lopressor] 12.5 mg PO Q12 30 Days #60 tab Metoprolol Tartrate [Lopressor] 1 mg PO Q12 30 Days #60 tab Omeprazole 20 mg PO HS 30 Days #60 capsule. ALPRAZolam [Xanax] 0.25 mg PO Q12 PRN 1 Days #60 tab PRN Reason: Anxiety - Follow Up Plan Condition: FAIR Disposition: HOME/ ROUTINE
[2018-12-21 16:01] LABS: FOLATE > 20.0 ng/mL
[2018-12-21 16:20] VITALS: BP 112/70; PULSE 83; TEMP 97.8; O2SAT 98
--- NOTE | 2018-12-22 00:25 | CON ---
DATE: 12/21/2018 PSYCHIATRIC CONSULTATION CHIEF COMPLAINT AND REASON FOR CONSULTATION: The patient was referred by Dr. Donavan Douglas for evaluation for anxiety and management. HISTORY OF PRESENT ILLNESS: The patient is a 78-year-old female of [place] descent who lives with her . The patient is a retired nurse. The patient came to the emergency room complaining of weakness, chest pain, tachycardia. The patient reports a history of anxiety. She states before she was taking Ativan, but now is given Xanax p.r.n. The patient states that she is having bouts of anxiety, but states that she has no reason to be anxious. The patient has a very good marriage. The kids are all successful. The patient has no financial problems and has good relationship with . The patient states that she is worried out of nothing. She had a blood workup done. She states that her sodium was a little low which was on admission 128, now current level is 129. Her creatinine is 0.9. The patient's blood sugar is 90, the last one. Free T4 is 1.32. The patient states that she has at times trouble sleeping, and the Xanax is helping to sleep. PAST PSYCHIATRIC HISTORY: History of anxiety off and on and tried Xanax and Ativan. She said she was given Paxil before, and she was unable to tolerate it. ALLERGIES: NO KNOWN ALLERGIES. DRUG AND ALCOHOL HISTORY: Denies any. CURRENT MEDICATIONS: Include Benadryl 50 mg at bedtime, Lopressor, Lovenox, Protonix, and Xanax. PHYSICAL EXAMINATION: VITAL SIGNS: Temperature is 97.9, pulse 76, blood pressure 149/75, respirations 20, and oxygen saturation is 99%. REVIEW OF SYSTEMS: CONSTITUTIONAL: The patient is alert and oriented x3, conversing in Tag[place]. She was noted to be anxious and somatic. SKIN: No diaphoresis. HEENT: No headache. No dizziness. NECK: Supple. RESPIRATORY: No dyspnea. CARDIOVASCULAR: Has off and on chest pain. GASTROINTESTINAL: She is eating fairly well. EXTREMITIES: The patient is moving extremities. No tremors. MUSCULOSKELETAL: Feels weak. NEURO: Alert and oriented x3. GENITOURINARY: No urinary problems. MENTAL STATUS EXAMINATION: Elderly female, [place] descent. Oriented x3. Conversing in Tag[place]. Mood is anxious. Affect is reactive. Speech is spontaneous. Thought process, coherent. Thought content, no overt psychosis. No suicidal ideation. Attention and memory seem to be fair. Insight and judgment are fair. Impulse control is fair. IMPRESSION: Anxiety disorder, not otherwise specified as well as chest pain. PLAN AND RECOMMENDATIONS: The patient was seen. Meds reviewed. We will put her on Xanax 0.25 mg every 12 hours for anxiety. However, the patient has Benadryl. The patient is elderly and Benadryl can with its anticholinergic side effects cause some psychiatric signs and symptoms, may increase the risk of confusion as well as also it triggers mood symptoms. We will discontinue the Benadryl for now and just change the patient to Xanax 0.25 mg every 12 hours. Also, we will try to check her B12 level as well as folate and magnesium as part of the workup. Juan Bradshaw MD
== END 2018-12-21 18:55 | disposition home or self-care (01) ==
LOC: C.ER 04:48 → C.9E 06:38 → C.5S 08:12
PROVIDERS: ADMIT Family Medicine; ATTEND Family Medicine
DX: R07.9 Chest pain, unspecified (principal); E87.1 Hypo-osmolality and hyponatremia; K21.9 Gastro-esophageal reflux disease without esophagitis; F06.4 Anxiety disorder due to known physiological condition; F41.0 Panic disorder [episodic paroxysmal anxiety]; I10 Essential (primary) hypertension; K50.90 Crohn's disease, unspecified, without complications; Z87.440 Personal history of urinary (tract) infections; R00.0 Tachycardia, unspecified; R53.81 Other malaise
CPT/HCPCS: 36415; 71045; 80048; 80053; 82436; 82607; 82746; 83036; 83690; 83735; 83880; 83930; 84100; 84300; 84439; 84443; 84484; 85025; 85610; 85730; 87086; 93005; 99285; G0378; J1650